=== PATIENT | male | born 1985 | race African-American/Black ===

== ENCOUNTER 2021-08-26 05:13 | Emergency (ER) | payer SELFPAY ==
[~2021-08-26] VITALS: Ht 185.4 cm; Wt 67.6 kg
[2021-08-26 05:26] VITALS: BP 119/78
--- NOTE | 2021-08-26 05:37 | NUR ---
RACHELE TO ER BED 19. AAOX4. NOT IN RESP DISTRESS. AMBULATORY. BROUGHT IN FOR HAVING A DISCOMFORT IN HIS FACE. PER PT" I HAVE A MINNOW IN MY CHEEKS AND ITS MOVING AROUND". UPON INSPECTION NO NOTED. NOTHING NOTED WELL UPON PALPATION. AWAITING MD FOR EVAL .
== END 2021-08-26 06:59 | disposition home or self-care (01) ==
LOC: ER 05:17
DX: R20.2 Paresthesia of skin (principal); F17.200 Nicotine dependence, unspecified, uncomplicated; Z59.00 Homelessness unspecified